=== PATIENT | female | born 1960 | race African-American/Black ===

== ENCOUNTER 2024-05-20 12:32 | Emergency (ER) | payer BC ==
[2024-05-20 12:36] VITALS: BP 153/88; PULSE 84; RESP 18; TEMP 98.4; BMI 23.4
[2024-05-20] MEDS ORDERED: ACETAMINOPHEN INJECTION 100 ML ONE (14:14)
[2024-05-20] MEDS: ACETAMINOPHEN 1000 MG/100 ML BAG IVPB ONE (14:36)
[2024-05-20] MEDS: SODIUM CHLORIDE 0.9% 500 ML INFUS.BAG IV ONE (14:36)
[2024-05-20 14:37] LABS: BASO % 0.4 % (0-2.0); EOS % 3.8 % (0-4.5); HEMATOCRIT 35.9 % (32.4-45.2); HEMOGLOBIN 11.7 GM/dL (10.7-15.3); LYMPH % 34.5 % (8-40); MCH 28.9 pg (25.7-33.7); MCHC 32.4 g/dl (32.0-36.0); MEAN CELL VOLUME 89.1 fl (80-96); MEAN PLT VOLUME 10.4 fl (7.5-11.1); MONO % 11.2 % (3.8-10.2); NEUT % 50.1 % (42.8-82.8); PLATELET COUNT 202 10^3/uL (134-434); RBC 4.03 M/mm3 (3.60-5.2); RDW 14.2 % (11.6-15.6); WHITE BLOOD COUNT 4.7 K/mm3 (4.0-10.0)
[2024-05-20 14:54] LABS: POTASSIUM 5.5 mmol/L (3.5-5.1)
[2024-05-20 14:57] LABS: ALBUMIN 3.5 g/dl (3.4-5.0); BLOOD UREA NITROGEN 7.4 mg/dL (7-18)
[2024-05-20 15:00] LABS: CREATININE 0.7 mg/dL (0.55-1.3)
[2024-05-20 15:01] LABS: BILIRUBIN,TOTAL 0.6 mg/dL (0.2-1)
[2024-05-20 15:02] LABS: TOT PROT 7.2 g/dl (6.4-8.2)
== END 2024-05-20 17:04 | disposition home or self-care (01) ==
LOC: JERFT 12:32
PROC: 3E033NZ Introduction of Analgesics, Hypnotics, Sedatives into Peripheral Vein, Percutaneous Approach (ICD-10-PCS; principal; 2024-05-20)
DX: R09.81 Nasal congestion (principal); R05.9 Cough, unspecified; J06.9 Acute upper respiratory infection, unspecified; Z20.822 Contact with and (suspected) exposure to COVID-19
CPT/HCPCS: 0241U-QW; 36415; 71046-TC-FY; 80053; 85025; 99284-25; J0131

== ENCOUNTER 2025-01-21 13:01 | Emergency (ER) | payer BC ==
[2025-01-21 13:08] VITALS: TEMP 98.6; BMI 24.7
[2025-01-21 14:37] LABS: ABSOLUTE IMMATURE GRANULOCYTES 0.02 x10^3/uL (0.0-0.031); BASOPHILS # 0.02 x10^3/uL (0.01-0.08); EOSINOPHIL % 1.5 % (0.7-5.8); EOSINOPHILS # 0.07 x10^3/uL (0.04-0.36); HEMATOCRIT 35.6 % (34.1-44.9); HEMOGLOBIN 11.3 g/dL (11.2-15.7); MCHC 31.7 g/dl (32.2-35.5); MEAN CELL VOLUME 90.4 fl (79.4-94.8); MONOCYTE # 0.48 x10^3/uL (0.24-0.86); MONOCYTE % 10.4 % (4.7-12.5); PLATELET COUNT 169 x10^3/uL (182-369); RDW 13.5 % (12.4-16.4)
[2025-01-21 14:54] LABS: POTASSIUM 4.9 mmol/L (3.5-5.1)
[2025-01-21 14:56] LABS: CALCIUM 9.5 mg/dL (8.5-10.1)
[2025-01-21 14:57] LABS: ALBUMIN 3.6 g/dl (3.4-5.0); BLOOD UREA NITROGEN 13.6 mg/dL (7-18); MAGNESIUM 1.9 mg/dL (1.8-2.4)
[2025-01-21 15:00] LABS: CREATININE 0.8 mg/dL (0.55-1.3)
[2025-01-21 15:01] LABS: BILIRUBIN,TOTAL 0.5 mg/dL (0.2-1)
[2025-01-21 15:03] LABS: TOT PROT 6.9 g/dl (6.4-8.2)
[2025-01-21 17:21] VITALS: BP 143/84; PULSE 75; RESP 16
[2025-01-22 20:46] LABS: HIV INTERPRETATION NEGATIVE (NEGATIVE)
[2025-01-22 20:47] LABS: HCV DIAGNOSTIC IN-HOUSE W/RFLX NON-REACTIVE (NONREACTIVE)
== END 2025-01-21 16:40 | disposition home or self-care (01) ==
LOC: JER 13:01
DX: G56.02 Carpal tunnel syndrome, left upper limb (principal); R20.2 Paresthesia of skin; R20.0 Anesthesia of skin; R94.31 Abnormal electrocardiogram [ECG] [EKG]
CPT/HCPCS: 36415; 70450-TC; 71046-TC-FY; 72125-TC; 80053; 83735; 84484; 85025; 86803; 87389; 93005; 93010; 99285-25